=== PATIENT | female | born 1945 | race Caucasian/White ===

== ENCOUNTER 2017-06-20 23:15 | Observation (INO) | payer MEDICARE ==
[~2017-06-20] VITALS: Ht 157.5 cm; Wt 45.8 kg
[2017-06-20 23:16] VITALS: BP 176/83
[2017-06-20] MEDS ORDERED: CARVEDILOL12.5 MG PO (23:29)
[2017-06-20] MEDS ORDERED: ZANTAC 150MG T150 MG PO (23:29)
[2017-06-20] MEDS ORDERED: ASPIR 8181 MG PO (23:29)
[2017-06-21 00:06] LABS: ABSOLUTE EOSINOPHILS 0.2 thou/uL (0.0-0.7); ABSOLUTE LYMPHOCYTES 1.5 thou/uL (0.8-5.3); ABSOLUTE MONOCYTES 0.3 thou/uL (0.0-1.2); ABSOLUTE NEUTROPHILS 2.3 thou/uL (1.6-8.1); EOSINOPHILS 4.5 %; HEMATOCRIT 40.4 % (37.0-47.0); HEMOGLOBIN 13.6 gm/dL (12.0-15.0); LYMPHOCYTES 33.9 %; MCH 35.2 pg (26.0-34.0); MCHC 33.7 g/dL (28.0-37.0); MCV 104.3 fL (80.0-100.0); MPV 7.9 fl. (7.2-11.1); NUCLEATED RBCS 0 /100WBC; PLATELET COUNT* 232 thou/uL (150-400); POLYS 52.6 %; RBC 3.87 mil/uL (4.20-5.00); RDW-CV 14.5 % (10.5-14.5); WBC 4.4 thou/uL (4.0-11.0)
[2017-06-21 00:20] LABS: ANION GAP 9 mmol/L (7-16); BUN 16 mg/dL (7-18); CALCIUM 9.1 mg/dL (8.5-10.1); CHLORIDE 104 mmol/L (98-107); CO2 26 mmol/L (21-32); CREATININE 0.7 mg/dL (0.6-1.3); GLUCOSE 111 mg/dL (70-99); POTASSIUM 3.7 mmol/L (3.5-5.1); SODIUM 139 mmol/L (136-145)
[2017-06-21 00:21] LABS: APTT 26.8 Seconds (25.0-31.3); PROTIME 10.1 Seconds (9.20-11.50)
[2017-06-21 00:43] LABS: ALBUMIN 3.6 g/dL (3.4-5.0); ALKALINE PHOSPHATASE 94 U/L (46-116); CK-MB MASS 0.7 ng/mL (<0.5-3.6); LIPASE 353 U/L (73-393); MAGNESIUM 1.8 mg/dL (1.8-2.4); NT-PRO BRAIN NAT PEPTIDE 666 pg/mL (<300); SGOT 21 U/L (15-37); SGPT 12 U/L (30-65); TOTAL BILIRUBIN 0.5 mg/dL (<0.1-1.0); TOTAL PROTEIN 7.5 g/dL (6.4-8.2); TROPONIN-I LEVEL <0.06 ng/mL (<0.06)
[2017-06-21 02:49] VITALS: BP 165/77
[2017-06-21 03:05] VITALS: BP 171/86
--- NOTE | 2017-06-21 05:45 | NUR ---
PT WAS ADMITTED TO ROOM 215 DURING THIS SHIFT; VSS, A+0X4, DENIES PAIN, LEFT CHEST NITRO PATCH PLACED BY EMS ENROUTE TO ED. SHE IS ABLE TO COMMUNICATE HER NEEDS TO STAFF EFFECTIVELY. SHE HAS DENIED THE NEED FOR ANY PAIN MEDICATION UP TO THIS TIME. REPEAT EKG AND SERUM TROPONIN LATER THIS AM.
[2017-06-21 08:00] VITALS: BP 153/75
[2017-06-21] MEDS ORDERED: HYDROCHLOROTHIA25 M2 PO (08:31)
[2017-06-21] MEDS ORDERED: COREG25 M1 PO (08:31)
[2017-06-21 09:04] LABS: CHOLESTEROL 221 mg/dL (<200); HDL CHOLESTEROL 87 mg/dL (>40); LDL CHOLESTEROL 127 mg/dL (<100); TC:HDL 2.5 Ratio (Not establshd); TRIGLYCERIDE 39 mg/dL (<150); VLDL 8 mg/dL (<40)
[2017-06-21 09:09] LABS: SERUM ASSESSMENT Clear
--- NOTE | 2017-06-21 09:35 | EKG ---
[place] [address] ELECTROCARDIOGRAM REPORT Name: CHANCE KUMAR [address] [id number] Admission: 06/21/17 Attend Phys: Dat Yusuf MD Discharge: Date of : 47 Report #: [id number] THIS REPORT FOR: //name// [facility] ED Test Date: 2017-06-20 Test Time: 23:16:21 Pat Name: CHANCE KUMAR Department: Room: Gender: F Landscape Supervisor: : 1945 Requested By: Tolu Oneill Order Number: [id number] MD: Artem Moody Measurements Intervals [place] Rate: 76 P: 80 MI: 133 QRS: 1 QRSD: 139 T: 119 QT: 449 QTc: 505 Interpretive Statements Sinus rhythm Left bundle branch block Compared to ECG 06/18/2005 08:01:32 Left bundle-branch block now present Electronically Signed On 06-21-2017 9:35:07 CDT by Artem Moody [email or web address] <ELECTRONICALLY SIGNED> By: Artem Moody MD, [facility] 06/21/17 0935 2316 2316 Artem Moody MD, [facility] /EPI
--- NOTE | 2017-06-21 09:37 | EKG ---
[place] [address] ELECTROCARDIOGRAM REPORT Name: CHANCE KUMAR Room: [address] M.R.#: [id number] Admission: 06/21/17 Attend Phys: Dat Yusuf MD Discharge: Date of : 47 Report #: [id number] THIS REPORT FOR: //name// [facility] Test Date: 2017-06-21 Test Time: 05:30:29 Pat Name: CHANCE KUMAR Department: Room: [address] Gender: F Warehouse Assembly Worker: SHANTAL : 1945 Requested By: Tolu Oneill Order Number: [id number] Reading MD: Artem Moody Measurements Intervals [place] Rate: 63 P: 78 WI: 129 QRS: 5 QRSD: 138 T: 264 QT: 484 QTc: 496 Interpretive Statements Sinus rhythm Left bundle branch block Compared to ECG 06/18/2005 08:01:32 Left bundle-branch block now present Electronically Signed On 06-21-2017 9:37:06 CDT by Artem Moody [email or web address] <ELECTRONICALLY SIGNED> By: Artem Moody MD, [facility] 06/21/17 0937 0530 Artem Moody MD, [facility] /EPI
--- NOTE | 2017-06-21 11:02 | NUR ---
PATIENT UP IN ROOM DENIES CHEST PAIN. TO STRESS TEST THIS AFTERNOON.
[2017-06-21 12:27] VITALS: BP 142/62
--- NOTE | 2017-06-21 15:52 | EKG ---
[place] [address] ELECTROCARDIOGRAM REPORT Name: CHANCE KUMAR Room: [address] M.R.#: [id number] Admission: 06/21/17 Attend Phys: Dat Yusuf MD Discharge: Date of : 47 Report #: [id number] THIS REPORT FOR: //name// [facility] Test Date: 2017-06-21 Test Time: 10:15:04 Pat Name: CHANCE KUMAR Department: Room: [address] Gender: F Airframe And Powerplant Mechanic: : 1945 Requested By: Tolu Oneill Order Number: [id number] Reading MD: Aretm Moody Measurements Intervals [place] Rate: 66 P: 79 VA: 125 QRS: 15 QRSD: 142 T: 233 QT: 479 QTc: 502 Interpretive Statements Sinus rhythm Left bundle branch block Compared to ECG 06/21/2017 05:30:29 No significant changes Electronically Signed On 06-21-2017 15:52:32 CDT by Artem Moody [email or web address] <ELECTRONICALLY SIGNED> By: Artem Moody MD, [facility] 06/21/17 1552 1015 1015 Artem Moody MD, [facility] /EPI
--- NOTE | 2017-06-21 15:57 | NUR ---
REPORT GIVEN TO NURSE REHAB. WAITING FOR ROOM.
--- NOTE | 2017-06-21 16:44 | CARDNUC ---
[place] [address] CARDIAC NUCLEAR IMAGING REPORT Name: CHANCE KUMAR Room: [address] MYue#: [id number] Admission: 06/21/17 Attend Phys: Dat Yusuf, Discharge: Date of : 47 Date of Service: 06/21/17 1643 Report #: [id number] THIS REPORT FOR: //name// APPROVED REPORT Study performed: 06/21/2017 09:46:00 Exam: Nuclear Stress Test Indication: chest pain Patient Location: In-Patient Room #: [facility] Stress Tech: Magali Regalado Stress Nurse: Светлана Meléndez RN Ht: 5 ft 2 in Wt: 101 lbs BSA: 1.43 m2 BMI: 18.47 Medical History Medical History: hypertension, copd gerd Medications: apresoline, asa Allergies: nkda Cardiac Risk Factors: age, hypertension, tobacco, Previous Cardiac Procedures: none Exercise History: Physically active Stress Test Details Stress Test: Pharmacologic stress testing performed using 0.4 mg of regadenoson per 5 mL given IV over 10 seconds. Reason for pharmacologic stress test: LBBB. Reversal agent Aminophyline 50 mg, given intravenously for headache. HR Resting HR: 76 bpm Max Heart Rate (APMHR): 150 bpm Max HR Achieved: 118 bpm Target HR (85% APMHR): 127 bpm % of APMHR: 78 Recovery HR: 83 bpm HR response to stress: Normal HR response to stress BP Resting BP: 165/83 mmHg Max BP: 174/81 mmHg BP response to stress: Normal blood pressure response [place] [address] CARDIAC NUCLEAR IMAGING REPORT Name: CHANCE KUMAR [address]: [address] [id number] Admission: 06/21/17 Attend Phys: Dat Yusuf, Discharge: Date of : 47 Date of Service: 06/21/17 1643 Report #: [id number] Resting ECG: Sinus Rhythm , LBBB Stress ECG: Sinus Rhythm lbbb ST Change: None Recovery ECG: Sinus Rhythm Recovery ST Change: None Clinical Reason for Termination: Completed protocol Exercise duration: 0 min sec Exercise capacity: 1 METs Functional Aerobic Impairment 79% Stress ECG Conclusion nondiagnostic due to complete LBBB NM EXAM: Myocardial Perfusion REST/STRESS Imaging Protocol: Rest Tc-99m/Stress Tc-99m 1 day Resting Data Rest SPECT myocardial perfusion imaging was performed in supine position 30 minutes following the intravenous injection of 11.1 mCi of Tc-99m Sestamibi. Time of rest injection: 1400 Date: 06/21/2017 The images were gated to evaluate regional wall motion and calculate left ventricular ejection fraction. Administration Route: IV Administration Site: Left AC Pharmacologic Stress Pharmacologic stress test was performed by injecting Regadenoson 0.4 mg IV push followed by the intravenous injection of 33.5 mCi of Tc-99m Sestamibi. Time of stress injection: 1515 Date: 06/21/2017 Administration Route: IV Administration Site: Left AC Heart Rate at time of stress injection: 118 bpm. Gated Stress SPECT was performed 40 minutes after stress injection. The images were gated to evaluate regional wall motion and calculate left ventricular ejection fraction. Prone imaging was performed. Study Quality Study: Good Artifact: Mild Breast artifact Lung Uptake: [place] [address] CARDIAC NUCLEAR IMAGING REPORT Name: CHANCE KUMAR Room: [address]#: [id number] Admission: 06/21/17 Attend Phys: Dat Yusuf, Discharge: Date of : 47 Date of Service: 06/21/17 1643 Report #: [id number] Study Data At rest, the left ventricular ejection fraction was 50%.. Post stress, the left ventricular ejection was 55%.. SSS: 10 SRS: 11 SDS: -1 TID = 0.93. Perfusion Review of SPECT images reveals a severe intensity moderate sized fixed anteroseptal defect, which mostly fixed when compared to Stress imaging dataset. No other perfusion defects are seen. Images were reviewed using [employer]. Wall Motion septal hypokinesis Nuclear Conclusion ECG Findings: non-diagnostic Clinical Findings: positive for ischemia Nuclear Findings: positive for ischemia Exercise Capacity: not assessed Left Ventricular Function: normal Risk Study: moderate There is a moderate sized area of infarct /ischemia of anterior wall, which could be related to conduction delay but ischemia cannot be ruled out given ischemic symptoms clinically. <Conclusion> nondiagnostic due to complete LBBB <ELECTRONICALLY SIGNED> By: Artem Moody MD, FACC 06/21/17 1643 42 42 Artem Moody MD, FACC /INF
--- NOTE | 2017-06-21 18:38 | NUR ---
TOOK OVER CARE OF THIS PT FROM AYANA BOYD AROUND 1600. REASSESSMENT EDITED PER THIS RN'S ASSESSMENT OF PT. THIS RN AGREES WITH OTHER CHARTING FROM AYANA BOYD. PT A&OX4. VSS. O2 >90% ON RA. NO COMPLAINTS OF PAIN OR DISCOMFORT AT THIS TIME. PT EATING AND DRINKING WITHOUT ISSUE. PT RETURNED FROM STRESS TEST - TEST POSITIVE FOR ISCHEMIA. PT TO BE NPO AFTER MIDNIGHT FOR CARDIOLOGY CONSULT IN THE MORNING AND POTENTIAL CATH. IV INTACT AND SALINE LOCKED. PT UDATED ON PLAN OF CARE. PT CURRENTLY LYING IN BE BED WATCHING TV. CALL LIGHT IS WITHIN REACH, LOW FALL RISK PRECAUTIONS IN PLACE. HOURLY ROUNDING PERFORMED. WCTM FOR DURATION OF SHIFT.
[2017-06-21] MEDS ORDERED: CARVEDILOL6.25 M1 PO (20:43)
[2017-06-21 21:58] VITALS: BP 163/70
[2017-06-22] VITALS (17 sets, daily range): BP systolic 135–180; BP diastolic 57–93
--- NOTE | 2017-06-22 05:54 | NUR ---
PT NPO P MIDNOC PENDING POSSIBLE STRESS TEST TODAY; BP 170/93, PRN HYDRALAZINE FOR SBP>180, DBP>100. REMAINS ON HONEYCOMB DECAPPER. NO ACUTE EVENTS OVERNIGHT, DENIES ANY CHEST PAIN THIS SHIFT, DENIES ANY SHORTNESS OF BREATH. REMAINS ON STD FALL PREC
--- NOTE | 2017-06-22 08:00 | NUR ---
VSS, ASSUMED CARE IN THE AM, ASSESSMENT PERFORMED AND CHARTED, FALL PRECAUTIONS IN PLACE AND CALL LIGHT IN REACH, PT IS UP AD ALTAF AND DENIES ANY PAIN, SHE IS TRACING SR ON THE MONITOR AND IS A&O4. PT GOAL IS TO COMPLETE CATH, WILL FOLLOW WITH PLAN OF CARE AND HOURLY ROUNDS.
--- NOTE | 2017-06-22 11:00 | NUR ---
MET WITH PT TO DISCUSS HOME SITUATION/DC PLANNING. PT LIVES ALONE. DTR IS NEXT DOOR AND ASSISTS HER NEEDED. [facility] PROVIDES TRANSPORTATION PT DOESN'T DRIVE. PT USES NO EQUIPMENT AND HASN'T HAD HH. SHE PLANS TO RETURN HOME AT DC. DENIES DC NEEDS. WILL FOLLOW
--- NOTE | 2017-06-22 15:47 | CON ---
[address] [address] CONSULTATION Name: CHANCE KUMAR Room: [address] M.R.#: [id number] Admission: 06/22/17 Attend Phys: Dat Yusuf MD Discharge: Date of : 47 Report #: [id number] THIS REPORT FOR: //name// CC: Bianca Yusuf DATE OF SERVICE: 06/22/2017 HISTORY OF PRESENT ILLNESS: The patient is a 71-year-old single white female who I was asked to see in the hospital today after she complained of chest pain. The patient has no previous history of heart disease. She does have a long history of high blood pressure. For the past 3 days, she has been having intermittent chest heaviness. It occurs off and on. It is not necessarily related to exertion or meals. It has never completely gone away. She denies radiating down her arms. It does make her short of breath and diaphoretic. She denied any nausea. She has had no fever, cough, or blood in her stool. She denied any trauma to her chest or rash. Because of chest heaviness, she called the EMS and finally brought to the emergency room 2 nights ago. She was admitted and yesterday underwent a nuclear stress test. The stress test was performed with Lexiscan stress. There was mild breast attenuation noted. There was an anteroseptal defect, which was mostly fixed. Ejection fraction was normal. This is felt to be consistent with previous infarct, possibly related to a bundle branch block, the ischemia cannot be excluded. I was asked to see her for further evaluation and treatment. She denies significant dyspnea on exertion, palpitations, or recent syncope. PAST MEDICAL HISTORY: She had had previous tubal ligation and tonsillectomy. She has a history of hypertension. She has a history of hyperlipidemia, but is no longer on a statin drug. She has no diabetes. MEDICATIONS: Consist of aspirin, carvedilol, and ranitidine. ALLERGIES: She has no known drug allergies. FAMILY HISTORY: Her mother had a stent. SOCIAL HISTORY: She is , lives by herself in [place], [place]. She does not work outside the home. Smokes half pack of cigarettes a day, occasionally drinks alcohol. No illicit drug use. REVIEW OF SYSTEMS: She has had no history of stroke or asthma. She denies chronic cough. No history of peptic ulcer disease, liver disease, kidney disease, or cancer. 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 No chronic skin condition. [place] [address] CONSULTATION Name: CHANCE KUMAR Room: [address]#: [id number] Admission: 06/22/17 Attend Phys: Dat Yusuf MD Discharge: Date of : 47 Report #: [id number] PHYSICAL EXAMINATION: GENERAL: Revealed an elderly female, lying in bed, she appeared in no distress. VITAL SIGNS: She had a blood pressure of 160/70, pulse 70. She is afebrile. HEENT: She was anicteric, conjunctivae are pink. Mucous membranes are moist. NECK: Veins do not appear distended. No carotid bruits heard. Neck was supple. CHEST: Clear to auscultation. CARDIOVASCULAR: Regular rate and rhythm, S4 gallop, grade 2 systolic ejection murmur. ABDOMEN: Soft, nontender. EXTREMITIES: Had no edema. Dorsalis pedis pulse 2+ on the right, cannot be palpated on the left. SKIN: Cool and dry. NEUROLOGIC: Nonfocal. LYMPH: No adenopathy. MUSCULOSKELETAL: No joint effusions. Her ECG showed a sinus rhythm with a left bundle branch block. Her chest x-ray on admission, she had normal heart size, clear lung figueroa. Her lab work, sodium 139, potassium 3.7, creatinine 0.7, glucose 111. Liver function studies were normal. Her troponin 0.06. BNP 666. Cholesterol 221, triglycerides 39, HDL 87, LDL 127. Her white blood cell count 4.4, hemoglobin 13.6, MCV is 104. IMPRESSION AND RECOMMENDATIONS: 1. Possible unstable angina. Abnormal Cardiolite. Recommend cardiac catheterization. 2. Hypertension. The patient has been on a beta delmar. 3. Hyperlipidemia. I would recommend resuming her statin drug. 4. Tobacco abuse. 5. Left bundle branch block. 6. Macrocytosis. The patient noted to have increased MCV. I would check a B12 and thyroid function tests. <ELECTRONICALLY SIGNED> By: Andrew Miller MD, [facility] 06/22/17 1547 0850 1435Davihelder Miller MD, FAC /nt
--- NOTE | 2017-06-22 16:19 | CARD ---
[address] [address] CARDIAC CATH REPORT Name: CHANCE KUMAR Room: [address] IN [facility].#: [id number] Admission: 06/22/17 Attend Phys: Dat Yusuf MD Discharge: Date of : 47 Report #: [id number] THIS REPORT FOR: //name// APPROVED REPORT Study performed: 06/22/2017 12:53:11 Patient Details Patient Status: In-Patient Room #: 215 The patient is a 71 year-old female Event Personnel Andrew Miller Gas Analyst, Nori Stokes RN Water Technician, Abby Kelley Monitor, Nyasia Lozoya RTR Scrub Procedures Performed cardiac catheterizationArt Access - R radial artery , Selective Right and Left Coronary Angiography, Left Heart Catheterization Indication Abnormal ECG, Positive stress test, Chest pain Risk Factors Tobacco History () Admission/Lab Medications/Medications given during procedure Heparin Unfract. Procedure Narrative The patient was brought electively to the Cardiac Catheterization Laboratory and was prepped and draped in a sterile manner. The right wrist was infiltrated with 1% Lidocaine subcutaneous anesthesia. A Slender Glidesheath sheath was inserted into the right radial artery. Coronary angiography was performed using coronary diagnostic catheters. The right coronary system was accessed and visualized with a DiagnosticJR4 5fr catheter. The left coronary system was accessed and visualized with a JL 3.5 5fr catheter. The left ventricle was accessed and visualized with a PC: Angled Pig 5fr catheter. Left ventricular/Aortic Valve gradient assessed via catheter pullback. Left ventriculogram was performed in BELTRE projection. Closure device was deployed with a 6 Fr vascband. The patient tolerated the procedure well and there were no complications associated with the procedure. [place] [address] CARDIAC CATH REPORT Name: CHANCE KUMAR Room: [address] IN [facility]#: [id number] Admission: 06/22/17 Attend Phys: Dat Yusuf MD Discharge: Date of : 47 Report #: [id number] Intraoperative Conscious Sedation Sedation start time: 13:30 Case end Time: 13:51 Fentanyl 25 mcg Versed 2 mg Fluoro Time: 2.2 minutes Dose: 230.71 mGy Contrast Type and Amount: Omnipaque 100 ml Coronary Angiography The patient's coronary anatomy is right dominant. [place]ena Artery Percent Stenosis Left Main: 0 % Prox LAD: 0 % Mid/Distal LAD: 0 % Circumflex: 0 % RCA: 0 % Ramus: % Left Ventriculography The left ventricle is normal in size with normal contractility. The left ventricular ejection fraction is estimated to be 55-60%. Left ventricular wall motion abnormalities are not present. There is no mitral insufficiency. Hemodynamics The aortic pressure is 126/65 mmHg with a mean of mmHg. The left ventricular pressure is 129/-2 mmHg with a mean of mmHg. The left ventricular end diastolic pressure is 8 mmHg. There was no gradient across the aortic valve upon pullback. Pullback from the left ventricle to the aorta revealed no gradient across the aortic valve. Conclusion 1. normal coronary arteries 2. false postive nuclear stress test Recommendations Smoking Cessation <ELECTRONICALLY SIGNED> By: Andrew Miller MD, FACC 06/22/17 1619 1619 1619Daangella Miller MD, FACC /INF
[2017-06-22] MEDS ORDERED: ATORVASTATIN CA40 MG PO (18:01)
[2017-06-22] MEDS ORDERED: NORVASC5 MG PO (18:01)
--- NOTE | 2017-06-22 18:54 | NUR ---
IV REMOVED. DISCHARGE TEACHING PRESENTED TO PT. PERSONAL ITEMS GATHERED. PT LEFT VIA WHEELCHAIR.
== END 2017-06-22 19:05 | disposition home or self-care (01) ==
LOC: M.ERS 23:15 → M.2W 06-21 01:53 → M.TBA-ER 06-21 01:53 → M.2W 06-21 01:53
PROVIDERS: Family Medicine; ADMIT Internal Medicine
DX: I16.0 Hypertensive urgency (principal); I25.110 Atherosclerotic heart disease of native coronary artery with unstable angina pectoris; R07.9 Chest pain, unspecified; J44.1 Chronic obstructive pulmonary disease with (acute) exacerbation; G44.41 Drug-induced headache, not elsewhere classified, intractable; K21.9 Gastro-esophageal reflux disease without esophagitis; D75.89 Other specified diseases of blood and blood-forming organs; I44.7 Left bundle-branch block, unspecified; E78.5 Hyperlipidemia, unspecified; F17.210 Nicotine dependence, cigarettes, uncomplicated; Z90.89 Acquired absence of other organs; Z98.51 Tubal ligation status; Z72.89 Other problems related to lifestyle